=== PATIENT | female | born 1975 | race Caucasian/White ===

== ENCOUNTER 2019-04-30 12:47 | Emergency (ER) | payer OTHER ==
[~2019-04-30] VITALS: Ht 170.2 cm; Wt 72.6 kg
[~2019-04-30 12:47] MED LIST: LAMICTAL100 MG PO; NORCO 5-325 TA1 EACH PO; PREDNISONE 20 M20 MG PO; TRAZODONE HCL100 MG PO; XANAX 0.5 MG0.5 M1 PO; ZOLOFT 50 MG TA50 M1 PO; ZOLOFT100 MG PO
[2019-04-30] MEDS ORDERED: MINIVELLE1 EAC1 PO (12:55)
[2019-04-30] MEDS ORDERED: LIPITOR10 MG PO (12:56)
[2019-04-30] MEDS ORDERED: CLEOCIN HCL150 MG PO (14:13)
[2019-04-30] MEDS ORDERED: CIPRO500 M1 PO (14:13)
[2019-04-30 14:24] VITALS: BP 115/64
== END 2019-04-30 14:26 | disposition home or self-care (01) ==
LOC: ER 12:47
DX: S61.032A Puncture wound without foreign body of left thumb without damage to nail, initial encounter (principal); L03.012 Cellulitis of left finger; F17.210 Nicotine dependence, cigarettes, uncomplicated; Z88.5 Allergy status to narcotic agent; Z88.1 Allergy status to other antibiotic agents; Z88.6 Allergy status to analgesic agent; Z79.899 Other long term (current) drug therapy; Z90.710 Acquired absence of both cervix and uterus; Z85.528 Personal history of other malignant neoplasm of kidney; W55.01XA Bitten by cat, initial encounter; Y93.89 Activity, other specified; Y92.89 Other specified places as the place of occurrence of the external cause; Y99.9 Unspecified external cause status